=== PATIENT | male | born 1970 | race Caucasian/White ===

== ENCOUNTER 2025-08-29 08:15 | Emergency (ER) | payer MEDICAID ==
[~2025-08-29] VITALS: Ht 180.3 cm; Wt 68.0 kg
[2025-08-29] MEDS: ACETAMINOPHEN 325 MG TABLET PO ONE (09:26)
[2025-08-29] MEDS ORDERED: ACETAMINOPHEN 325 MG TABLET ONE (09:26)
[2025-08-29 10:54] VITALS: BP 118/66; TEMP 98.3; O2SAT 99
== END 2025-08-29 10:54 | disposition home or self-care (01) ==
LOC: ER 08:30
DX: R07.81 Pleurodynia (principal); Z88.0 Allergy status to penicillin; V89.2XXA Person injured in unspecified motor-vehicle accident, traffic, initial encounter; Y93.89 Activity, other specified; Y92.410 Unspecified street and highway as the place of occurrence of the external cause; Y99.8 Other external cause status
CPT/HCPCS: 71100-TC